=== PATIENT | male | born 1980 | race Caucasian/White ===

== ENCOUNTER 2017-02-08 19:04 | Emergency (ER) | payer BC ==
[2017-02-08] MEDS ORDERED: Ketorolac 60 MG/2 ML SDV IM ONE (19:10)
--- NOTE | 2017-02-08 20:02 | EDM.PDOC ---
ED HPI GENERAL MEDICAL PROBLEM - General Chief Complaint: Back Pain or Injury Stated Complaint: HIP PAIN Time Seen by Provider: 02/08/17 19:35 Source of Information: Reports: Patient History Limitations: Reports: No Limitations - History of Present Illness INITIAL COMMENTS - FREE TEXT/NARRATIVE: History of present illness: [36-year-old male presenting with acute onset left hip pain. Patient has a known problem with his hip he indicated and that it has popped in and out before and is excruciating and he comes in desiring some help with further evaluation.] Review of systems: As per history of present illness and below otherwise all systems reviewed and negative. Past medical history: As per history of present illness and as reviewed below otherwise noncontributory. Surgical history: As per history of present illness and as reviewed below otherwise noncontributory. Social history: No reported history of drug or alcohol abuse. Family history: As per history of present illness and as reviewed below otherwise noncontributory. Physical exam: HEENT: Atraumatic, normocephalic, pupils reactive, negative for conjunctival pallor or scleral icterus, mucous membranes moist, throat clear, neck supple, nontender, trachea midline. Lungs: Clear to auscultation, breath sounds equal bilaterally, chest nontender. Heart: S1S2, regular, negative for clicks, rubs, or JVD. Abdomen: Soft, nondistended, nontender. Negative for masses or hepatosplenomegaly. Negative for costovertebral tenderness. Pelvis: Stable nontender. Genitourinary: Deferred. Rectal: Deferred. Extremities: Atraumatic, negative for cords or calf pain. Neurovascular unremarkable. Neuro: Awake, alert, oriented. Cranial nerves II through XII unremarkable. Cerebellum unremarkable. Motor and sensory unremarkable throughout. Exam nonfocal. Global assessment is benign save the subjective complaint as noted in the history of present illness patient has full range of motion to his left hip of 8 with some guarding and verbalizing that it is painful. Diagnostics: [] Therapeutics: [] Impression: [Left hip pain] Plan: [Referral to ortho] Definitive disposition and diagnosis as appropriate pending reevaluation and review of above. lower back Pain Score (Numeric/FACES): 9 - Related Data Allergies Allergy/AdvReac Type Severity Reaction Status Date / Time Penicillins Allergy Anaphylactic Verified 02/08/17 19:07 Shock Home Meds: Home Meds Aspirin [Halfprin] 81 mg PO ONETIME 11/07/15 [History] Citalopram [Celexa] 40 mg PO ONETIME 11/07/15 [History] Lisinopril 5 mg PO DAILY 11/07/15 [History] Metoprolol Succinate [Toprol XL] 25 mg PO DAILY 11/07/15 [History] Prasugrel HCl [Effient] 10 mg PO DAILY 11/07/15 [History] atorvaSTATin [Lipitor] 40 mg PO ONETIME 11/07/15 [History] Insulin Glargine,Hum.Rec.Anlog [Toujeo Solostar] 22 units SQ DAILY 02/08/17 [ History] sitaGLIPtin Phos/Metformin HCl [Janumet Xr 100-1,000 mg Tablet] 1 tab PO DAILY 02/08/17 [History] Past Medical History HEENT History: Reports: None Cardiovascular History: Reports: High Cholesterol, [place] Gastrointestinal History: Reports: None Genitourinary History: Reports: None Musculoskeletal History: Reports: None Neurological History: Reports: None Psychiatric History: Reports: None Endocrine/Metabolic History: Reports: Diabetes, Type II Hematologic History: Reports: None Immunologic History: Reports: None Oncologic (Cancer) History: Reports: None Dermatologic History: Reports: None - Infectious Disease History Infectious Disease History: Reports: None - Past Surgical History Head Surgeries/Procedures: Reports: None HEENT Surgical History: Reports: Adenoidectomy Cardiovascular Surgical History: Reports: Coronary Artery Stent GI Surgical History: Reports: Appendectomy Social & Family History - Family History Family Medical History: Noncontributory - Tobacco Use Smoking Status *Q: Current Every Day Smoker Years of Tobacco use: 25 Packs/Tins Daily: 1 - Caffeine Use Caffeine Use: Reports: Coffee, Tea - Recreational Drug Use Recreational Drug Use: No ED ROS GENERAL - Review of Systems Review Of Systems: See Below (History of present illness) ED EXAM, GENERAL - Physical Exam Exam: See Below (See history of present illness) Course - Vital Signs Last Recorded V/S: Last Vital Signs Temp 36.8 C 02/08/17 19:08 Pulse 96 02/08/17 19:08 Resp 18 02/08/17 19:08 BP 142/80 H 02/08/17 19:08 Pulse Ox 98 07/13/17 19:08 - Orders/Labs/Meds Orders: Active Orders 24 hr Category Date Time Status Hip Min 2V or 3V Lt [CR] Stat Exams 02/08/17 19:12 Ordered Meds: Medications Discontinued Medications Generic Name Dose Route Start Last Admin Trade Name Scarlet PRN Reason Stop Dose Admin Ketorolac Tromethamine 60 mg 02/08/17 19:10 02/08/17 19:16 Toradol IM 02/08/17 19:11 60 mg ONETIME ONE Administration Departure - Departure Time of Disposition: 20:01 Disposition: Home, Self-Care 01 Condition: Good Clinical Impression: Left hip pain - Discharge Information Forms: ED Department Discharge Additional Instructions: The following information is given to patients seen in the emergency department who are being discharged to home. This information is to outline your options for follow-up care. We provide all patients seen in our emergency department with a follow-up referral. The need for follow-up, as well as the timing and circumstances, are variable depending upon the specifics of your emergency department visit. If you don't have a primary care physician on staff, we will provide you with a referral. We always advise you to contact your personal physician following an emergency department visit to inform them of the circumstance of the visit and for follow-up with them and/or the need for any referrals to a consulting specialist. The emergency department will also refer you to a specialist when appropriate. This referral assures that you have the opportunity for follow-up care with a specialist. All of these measure are taken in an effort to provide you with optimal care, which includes your follow-up. Under all circumstances we always encourage you to contact your private physician who remains a resource for coordinating your care. When calling for follow-up care, please make the office aware that this follow-up is from your recent emergency room visit. If for any reason you are refused follow-up, please contact the [facility] Emergency Department at and asked to speak to the emergency department charge nurse. Take medication as directed Follow-up with proposal rep directed (Primary care as discussed return to ED as needed as discussed [facility] Professional [address], [address] [place] [address] - My Orders Last 24 Hours: My Active Orders 02/08/17 19:12 Hip Min 2V or 3V Lt [CR] Stat - Assessment/Plan Last 24 Hours: My Active Orders 02/08/17 19:12 Hip Min 2V or 3V Lt [CR] Stat
[2017-02-08 23:13] VITALS: BP 135/84
--- NOTE | 2017-02-09 10:45 | CR ---
EXAM DATE: 02/08/17 PATIENT'S AGE: 36 Patient: YAA BRISCOE Facility: [place], [place] Site . Site : 1980 Study: XRay Hip Left [id number]/13/[id number] 7:38:27 PM Ordering Physician: Doctor Love Final Report: HISTORY: Trauma, and the track and twisted. [place] like he dislocated his and relocated. FINDINGS: AP and frogleg views of the left hip demonstrates normal alignment. No fracture or dislocation is seen. A subtle 1.3 centimeter round sclerotic focus in the intertrochanteric femur. This is not as dense as expected for a bone island. IMPRESSION: 1. No acute bony abnormality in the left hip. 2. Findings sclerotic 1.3 centimeter focus within the left intertrochanteric femur. This is nonspecific in appearance. Recommend comparison to old films. If none are available, consider MRI for further evaluation. Dictated by Page Vieira MD @ 02/08/2017 7:49:17 PM Dictated by: Page Vieira MD @ 02/08/2017 19:49:22 (Electronic Signature) Report Signed by Proxy. VANNESSA
== END 2017-02-08 20:21 | disposition home or self-care (01) ==
LOC: MW.ED 19:04
DX: M25.552 Pain in left hip (principal); I25.2 Old myocardial infarction; E78.00 Pure hypercholesterolemia, unspecified; E11.9 Type 2 diabetes mellitus without complications; Z95.5 Presence of coronary angioplasty implant and graft; Z98.890 Other specified postprocedural states; Z79.4 Long term (current) use of insulin; Z79.899 Other long term (current) drug therapy
CPT/HCPCS: 73502; 96372; 99283; J1885

== ENCOUNTER 2020-04-16 16:25 | Emergency (ER) | payer BC ==
[2020-04-16] MEDS ORDERED: Sodium Chloride 0.9% 10 ML Syringe FLUSH PRN (16:46)
[2020-04-16] MEDS ORDERED: Aspirin 81 MG Tab.Chew PO ONE (16:46)
[2020-04-16] MEDS ORDERED: Sodium Chloride 0.9% 2.5 ML Syringe FLUSH PRN (16:46)
--- NOTE | 2020-04-16 16:51 | EDM.PDOC ---
ED HPI GENERAL MEDICAL PROBLEM - General Chief Complaint: Chest Pain Stated Complaint: CHEST PAIN Time Seen by Provider: 04/16/20 16:39 Source of Information: Reports: Patient History Limitations: Reports: No Limitations - History of Present Illness INITIAL COMMENTS - FREE TEXT/NARRATIVE: History of present illness: [Patient is 39-year-old male with a history of previous heart attack and stent when he was 34 who presents after having an episode of chest pain yesterday. He states that he was walking in the long, casually, when he started to feel some burning in his chest that radiated to both shoulders. He states the symptoms lasted for about 15 minutes, he got to his car and once he got his car the symptoms resolved spontaneously. He has not had any episodes of chest pain since. Denies associated shortness of breath. Denies blurry vision, headache, fever, chills, focal neurological deficit. He states that his allergies have been "kicking my ass" and he has had a dry cough associated with the symptoms and so he is not sure if the soreness in his chest is related to that or if it is due to the episode of chest pain he experienced yesterday.] Review of systems: As per history of present illness and below otherwise all systems reviewed and negative. Past medical history: As per history of present illness and as reviewed below otherwise noncontributory. Surgical history: As per history of present illness and as reviewed below otherwise noncontributory. Social history: No reported history of drug or alcohol abuse. Family history: As per history of present illness and as reviewed below otherwise noncontributory. Physical exam: General: Awake, alert, no acute distress, A&O X3. HEENT: Atraumatic, normocephalic, pupils reactive, negative for conjunctival pallor or scleral icterus, mucous membranes moist, throat clear, neck supple, nontender, trachea midline. Lungs: Clear to auscultation, breath sounds equal bilaterally, chest nontender. Heart: RRR, normal S1S2, no JVD. Abdomen: Soft, nondistended, nontender. Negative for masses or hepatosplenomegaly. Negative for costovertebral tenderness. Pelvis: Stable nontender. Genitourinary: Deferred. Rectal: Deferred. Extremities: Atraumatic, no edema, Neurovascular unremarkable. Neuro: Motor and sensory grossly intact throughout. Exam nonfocal. Diagnostics: [] Therapeutics: [] Impression: [] Plan: [] Definitive disposition and diagnosis as appropriate pending reevaluation and review of above. chest Pain Score (Numeric/FACES): 2 - Related Data Allergies Allergy/AdvReac Type Severity Reaction Status Date / Time Penicillins Allergy Anaphylactic Verified 04/16/20 16:35 Shock Home Meds: Home Meds Aspirin [Halfprin] 81 mg PO ONETIME 11/07/15 [History] Citalopram [Celexa] 40 mg PO DAILY 11/07/15 [History] Lisinopril 5 mg PO DAILY 11/07/15 [History] Metoprolol Succinate [Toprol XL] 25 mg PO DAILY 11/07/15 [History] atorvaSTATin [Lipitor] 40 mg PO BEDTIME 11/07/15 [History] Insulin Glargine,Hum.Rec.Anlog [Toujeo Solostar] 34 units SQ DAILY 02/08/17 [History] sitaGLIPtin Phos/Metformin HCl [Janumet Xr 100-1,000 mg Tablet] 1 tab PO DAILY 02/08/17 [History] Past Medical History HEENT History: Reports: None Cardiovascular History: Reports: High Cholesterol, Hypertension, [place] Respiratory History: Reports: None Gastrointestinal History: Reports: None Genitourinary History: Reports: None Musculoskeletal History: Reports: None Neurological History: Reports: None Psychiatric History: Reports: Anxiety Endocrine/Metabolic History: Reports: Diabetes, Type II Hematologic History: Reports: None Immunologic History: Reports: None Oncologic (Cancer) History: Reports: None Dermatologic History: Reports: None - Infectious Disease History Infectious Disease History: Reports: None - Past Surgical History Head Surgeries/Procedures: Reports: None HEENT Surgical History: Reports: Adenoidectomy Cardiovascular Surgical History: Reports: Coronary Artery Stent GI Surgical History: Reports: Appendectomy Endocrine Surgical History: Reports: None Social & Family History - Family History Family Medical History: Noncontributory - Tobacco Use Smoking Status *Q: Current Every Day Smoker Years of Tobacco use: 25 Packs/Tins Daily: 0.5 - Caffeine Use Caffeine Use: Reports: Coffee - Recreational Drug Use Recreational Drug Use: No ED ROS GENERAL - Review of Systems Review Of Systems: Comprehensive ROS is negative, except as noted in HPI. ED EXAM, GENERAL - Physical Exam Exam: See Below (see h and p) EKG INTERPRETATION EKG Date: 04/16/20 Time: 16:30 Rhythm: NSR Rate (Beats/Min): 97 [place]: Normal P-Wave: Present QRS: Normal ST-T: Normal QT: Normal Course - Vital Signs Text/Narrative:: EKG nonischemic, troponin negative, vital signs stable, patient has been chest pain-free throughout his emergency department stay. Heart score of 3 due to risk factors and history. I do not see much utility in getting a serial troponin as the episode was yesterday and if there was any elevation we would have seen it on the initial troponin drawn. Given that his symptoms have completely resolved since yesterday and that his work-up here is reassuring and negative, I believe he is appropriate for outpatient follow-up and management. I told him he needed to establish local cardiology follow-up, set up to get a stress test and echocardiogram in the outpatient setting. Strict return precautions provided for new or worsening symptoms including recurrent chest pain, shortness of breath, syncope, etc. Patient understands this plan and is agreeable with it. Last Recorded V/S: Last Vital Signs Temp 35.8 C L 04/16/20 17:45 Pulse 105 H 04/16/20 17:45 Resp 14 04/16/20 17:45 BP 133/81 04/16/20 17:45 Pulse Ox 95 04/16/20 17:45 - Orders/Labs/Meds Orders: Active Orders 24 hr Category Date Time Status Saline Lock Insert [OM.PC] Stat Oth 04/16/20 16:46 Ordered Labs: Laboratory Tests 04/16/20 04/16/20 04/16/20 Range/Units 16:30 16:35 16:35 WBC 10.62 (4.0-11.0) K/uL RBC 5.56 (4.50-5.90) M/uL Hgb 16.3 (13.0-17.0) g/dL Hct 49.2 (38.0-50.0) % MCV 88.5 (80.0-98.0) fL MCH 29.3 (27.0-32.0) pg MCHC 33.1 (31.0-37.0) g/dL RDW Std Deviation 46.2 (28.0-62.0) fl RDW Coeff of Ziggy 14 (11.0-15.0) % Plt Count 290 (150-400) K/uL MPV 10.10 (7.40-12.00) fL Neut % (Auto) 54.3 (48.0-80.0) % Lymph % (Auto) 36.9 (16.0-40.0) % [place] % (Auto) 6.5 (0.0-15.0) % Eos % (Auto) 1.9 (0.0-7.0) % Baso % (Auto) 0.4 (0.0-1.5) % Neut # (Auto) 5.8 H (1.4-5.7) K/uL Lymph # (Auto) 3.9 H (0.6-2.4) K/uL [place] # (Auto) 0.7 (0.0-0.8) K/uL Eos # (Auto) 0.2 (0.0-0.7) K/uL Baso # (Auto) 0.0 (0.0-0.1) K/uL Nucleated RBC % 0.0 /100WBC Nucleated RBCs # 0 K/uL Sodium 138 (136-148) mmol/L Potassium 4.2 (3.5-5.1) mmol/L Chloride 103 (98-107) mmol/L Carbon Dioxide 24.3 (21.0-32.0) mmol/L BUN 18 (7.0-18.0) mg/dL Creatinine 1.0 (0.8-1.3) mg/dL Est Cr Clr Drug Dosing 98.19 mL/min Estimated GFR (MDRD) > 60.0 ml/min Glucose 207 H (74-106) mg/dL Calcium 9.7 (8.5-10.1) mg/dL Total Bilirubin 0.1 L (0.2-1.0) mg/dL AST 11 L (15-37) IU/L ALT 35 (14-63) IU/L Alkaline Phosphatase 78 (46-116) U/L Troponin I < 0.050 (0.000-0.056) ng/mL B-Natriuretic Peptide 4 (<100) PG/ML Total Protein 7.7 (6.4-8.2) g/dL Albumin 4.1 (3.4-5.0) g/dL Globulin 3.6 (2.6-4.0) g/dL Albumin/Globulin Ratio 1.1 (0.9-1.6) Meds: Medications Discontinued Medications Generic Name Dose Route Start Last Admin Trade Name Scarlet PRN Reason Stop Dose Admin Aspirin 324 mg 04/16/20 16:46 04/16/20 17:03 Aspirin PO 04/16/20 16:47 324 mg ONETIME ONE Administration Sodium Chloride 10 ml 04/16/20 16:46 Saline Flush FLUSH ASDIRECTED PRN Keep Vein Open Sodium Chloride 2.5 ml 04/16/20 16:46 Saline Flush FLUSH ASDIRECTED PRN Keep Vein Open Departure - Departure Time of Disposition: 17:40 Disposition: Home, Self-Care 01 Condition: Good Clinical Impression: Chest pain Instructions: Nonspecific Chest Pain, Adult Referrals: Jeremi Bell MD [Primary Care Provider] - Forms: ED Department Discharge Additional Instructions: [facility] - Cardiology [address] [place] [id number] Call to set up appointment with cardiology clinic. Take all medications as previously prescribed. Return to the ER with any new or worsening symptoms. The following information is given to patients seen in the emergency department who are being discharged to home. This information is to outline your options for follow-up care. We provide all patients seen in our emergency department with a follow-up referral. The need for follow-up, as well as the timing and circumstances, are variable depending upon the specifics of your emergency department visit. If you don't have a primary care physician on staff, we will provide you with a referral. We always advise you to contact your personal physician following an emergency department visit to inform them of the circumstance of the visit and for follow-up with them and/or the need for any referrals to a consulting specialist. The emergency department will also refer you to a specialist when appropriate. This referral assures that you have the opportunity for follow-up care with a specialist. All of these measure are taken in an effort to provide you with optimal care, which includes your follow-up. Under all circumstances we always encourage you to contact your private p hysician who remains a resource for coordinating your care. When calling for follow-up care, please make the office aware that this follow-up is from your recent emergency room visit. If for any reason you are refused follow-up, please contact the [facility] Emergency Department at and asked to speak to the emergency department charge nurse. Sepsis Event Note (ED) - Evaluation Sepsis Screening Result: No Definite Risk - Focused Exam Vital Signs: Vital Signs Temp Pulse Resp BP Pulse Ox 04/16/20 17:45 35.8 C L 105 H 14 133/81 95 04/16/20 17:38 89 12 145/83 H 94 L 04/16/20 16:28 35.8 C L 100 18 145/83 H 96 - My Orders Last 24 Hours: My Active Orders 04/16/20 16:46 Saline Lock Insert [OM.PC] Stat - Assessment/Plan Last 24 Hours: My Active Orders 04/16/20 16:46 Saline Lock Insert [OM.PC] Stat
--- NOTE | 2020-04-16 17:06 | CR ---
Chest: Portable view of the chest was obtained. Comparison: Prior chest x-ray of . Heart size and mediastinum are normal. Lungs are clear with no acute parenchymal change. Bony structures are grossly intact. Impression: 1. Nothing acute is seen on portable chest x-ray. Diagnostic code #1 This report was dictated in MDT
[2020-04-16 17:11] LABS: BLOOD UREA NITROGEN,BUN 18 mg/dL (7.0-18.0); CARBON DIOXIDE,CO2 24.3 mmol/L (21.0-32.0); CHLORIDE,CL 103 mmol/L (98-107); GLUCOSE RANDOM 207 mg/dL (74-106); POTASSIUM,K 4.2 mmol/L (3.5-5.1); SODIUM,NA 138 mmol/L (136-148)
[2020-04-16 17:48] VITALS: BP 133/81; PULSE 105
== END 2020-04-16 17:45 | disposition home or self-care (01) ==
LOC: MW.ED 16:25
DX: R07.9 Chest pain, unspecified (principal); I10 Essential (primary) hypertension; I25.2 Old myocardial infarction; F41.9 Anxiety disorder, unspecified; E11.9 Type 2 diabetes mellitus without complications; F17.210 Nicotine dependence, cigarettes, uncomplicated; Z88.0 Allergy status to penicillin; Z79.899 Other long term (current) drug therapy; Z95.5 Presence of coronary angioplasty implant and graft; Z90.49 Acquired absence of other specified parts of digestive tract
CPT/HCPCS: 36415; 71045; 80053; 83880; 84484; 85025; 93005; 99285; A9270; 99283

== ENCOUNTER 2020-06-20 15:18 | Emergency (ER) | payer BC ==
--- NOTE | 2020-06-20 15:50 | EDM.PDOC ---
<Shannen Chamorro - Last Filed: 06/20/20 15:39> ED HPI GENERAL MEDICAL PROBLEM - General Chief Complaint: General Stated Complaint: POST SURGERY INCISION OPENED Time Seen by Provider: 06/20/20 15:19 Source of Information: Reports: Patient History Limitations: Reports: No Limitations - History of Present Illness INITIAL COMMENTS - FREE TEXT/NARRATIVE: HISTORY AND PHYSICAL: History of present illness: Patient is a 40-year-old male who presents to the ED today with concern of the bottom of his surgical wound opening up from a cardiac bypass that occurred on May 25. Patient states he had the surgery done by a cardiothoracic surgeon in [place] at [facility] and had a follow-up 1 week ago. Patient states that there was a scab covering the bottom part of the incision that fell off this morning. Patient states underlying the incision was an open area of the incision so he came to the ED for evaluation. Patient states that initially when the scab fell off of the area, there was a small amount of brown scab-like drainage but other than this, patient denies any pus, blood, or drainage from the area. Patient denies any other symptoms or concerns. Patient denies fever, chills, chest pain, shortness of breath, or cough. Denies headache, neck stiff ness, change in vision, syncope, or near syncope. Denies nausea, vomiting, abdominal pain, diarrhea, constipation, or dysuria. Has not noted any blood in urine or stool. Patient has been eating and drinking appropriately. Review of systems: As per history of present illness and below otherwise all systems reviewed and negative. Past medical history: As per history of present illness and as reviewed below otherwise noncontributory. Surgical history: As per history of present illness and as reviewed below otherwise noncontributory. Social history: See social history for further information Family history: As per history of present illness and as reviewed below otherwise noncon tributory. Physical exam: General: Patient is alert, oriented, and in no acute distress. Patient sitting comfortably on exam table. HEENT: Atraumatic, normocephalic, pupils equal and reactive bilaterally, negative for conjunctival pallor or scleral icterus, mucous membranes moist, TMs normal bilaterally, throat clear, neck supple, nontender, trachea midline. No drooling or trismus noted. No meningeal signs. No hot potato voice noted. Lungs/Chest: There is a slight wound dehiscence at the inferior aspect of the bottom 2cm of surgical incision approximately 0.5-1cm without drainage, pus, erythema, or sign of infection. This dehiscence is superficial and does not comprise deeper tissues. Other area of incision appears to be healing well without drainage, erythema, warmth, or pain to palpation. Otherwise, clear to auscultation, breath sounds equal bilaterally, chest nontender. Heart: S1S2, regular rate and rhythm without overt murmur Abdomen: Soft, nondistended, nontender. Negative for masses or hepatosplenomegaly. Negative for costovertebral tenderness. Pelvis: Stable nontender. Genitourinary: Deferred. Rectal: Deferred. Skin: Intact, warm, dry. No lesions or rashes noted. Extremities: Atraumatic, negative for cords or calf pain. Neurovascular unremarkable. Neuro: Awake, alert, oriented. Cranial nerves II through XII unremarkable. Cerebellum unremarkable. Motor and sensory unremarkable throughout. Exam nonfocal. Notes: Dr. Owusu directly involved in patient care. There is a slight wound dehiscence at the inferior aspect of the incision approximately 0.5-1cm without drainage or sign of infection. This dehiscence is superficial and does not comprise deeper tissues. Wound care management and close follow up with his PCP/cardiothoracic surgeon discussed. Signs and symptoms that would prompt return to the ED thoroughly discussed with patient. Discussed importance for follow-up with a primary care provider. Voices understanding and is agreeable to plan of care. Denies any further questions or concerns at this time. Diagnostics: None Therapeutics: None Prescription: None Impression: Wound dehiscence, superficial, surgical Plan: 1. Continue to monitor for improving vs worsening healing of incision area as discussed. 2. Follow up with your primary care provider/cardiothoracic surgeon as discussed. 3. Wound management as discussed. Return to the ED as needed and as discussed. Definitive disposition and diagnosis as appropriate pending reevaluation and review of above. chest Pain Score (Numeric/FACES): 1 - Related Data Allergies Allergy/AdvReac Type Severity Reaction Status Date / Time Penicillins Allergy Anaphylactic Verified 06/20/20 15:28 Shock Home Meds: Home Meds Aspirin [Halfprin] 81 mg PO ONETIME 11/07/15 [History] Citalopram [Celexa] 40 mg PO DAILY 11/07/15 [History] Lisinopril 5 mg PO DAILY 11/07/15 [History] Metoprolol Succinate [Toprol XL] 50 mg PO DAILY 11/07/15 [History] atorvaSTATin [Lipitor] 40 mg PO BEDTIME 11/07/15 [History] Insulin Glargine,Hum.Rec.Anlog [Touzurio Solostar] 34 units SQ DAILY 02/08/17 [History] Past Medical History HEENT History: Reports: None, Impaired Vision Cardiovascular History: Reports: High Cholesterol, Hypertension, [place] Other Cardiovascular History: triple bypass Respiratory History: Reports: None Gastrointestinal History: Reports: None Genitourinary History: Reports: None Musculoskeletal History: Reports: None Neurological History: Reports: None Psychiatric History: Reports: Anxiety Endocrine/Metabolic History: Reports: Diabetes, Type II Hematologic History: Reports: None Immunologic History: Reports: None Oncologic (Cancer) History: Reports: None Dermatologic History: Reports: None - Infectious Disease History Infectious Disease History: Reports: None - Past Surgical History Head Surgeries/Procedures: Reports: None HEENT Surgical History: Reports: Adenoidectomy Cardiovascular Surgical History: Reports: Coronary Artery Stent GI Surgical History: Reports: Appendectomy Endocrine Surgical History: Reports: None Social & Family History - Family History Family Medical History: No Pertinent Family History - Caffeine Use Caffeine Use: Reports: Coffee - Recreational Drug Use Recreational Drug Use: No ED ROS GENERAL - Review of Systems Review Of Systems: Comprehensive ROS is negative, except as noted in HPI. ED EXAM, GENERAL - Physical Exam Exam: See Below (see dictation) Departure - Departure Time of Disposition: 15:39 Disposition: Home, Self-Care 01 Clinical Impression: Wound dehiscence, surgical Qualifiers: Encounter type: initial encounter Qualified Code(s): T81.31XA - Disruption of external operation (surgical) wound, not elsewhere classified, initial encounter - Discharge Information Referrals: Jeremi Bell MD [Primary Care Provider] - Forms: ED Department Discharge Additional Instructions: The following information is given to patients seen in the emergency department who are being discharged to home. This information is to outline your options for follow-up care. We provide all patients seen in our emergency department with a follow-up referral. The need for follow-up, as well as the timing and circumstances, are variable depending upon the specifics of your emergency department visit. If you don't have a primary care physician on staff, we will provide you with a referral. We always advise you to contact your personal physician following an emergency department visit to inform them of the circumstance of the visit and for follow-up with them and/or the need for any referrals to a consulting specialist. The emergency department will also refer you to a specialist when appropriate. This referral assures that you have the opportunity for follow-up care with a specialist. All of these measure are taken in an effort to provide you with optimal care, which includes your follow-up. Under all circumstances we always encourage you to contact your private physician who remains a resource for coordinating your care. When calling for follow-up care, please make the office aware that this follow-up is from your recent emergency room visit. If for any reason you are refused follow-up, please contact the [facility] at and asked to speak to the emergency department charge nurse. [facility] [address] [place] [address] [place] [address] 1. Continue to monitor for improving vs worsening healing of incision area as discussed. 2. Follow up with your primary care provider/cardiothoracic surgeon as discussed. 3. Wound management as discussed. Return to the ED as needed and as discussed. Sepsis Event Note (ED) - Evaluation Sepsis Screening Result: No Definite Risk <Peter Owusu - Last Filed: 06/20/20 15:56> Course - Vital Signs Last Recorded V/S: Last Vital Signs Temp 97.8 F 06/20/20 15:30 Pulse 97 06/20/20 15:30 Resp 18 06/20/20 15:30 BP 110/73 06/20/20 15:30 Pulse Ox 96 06/20/20 15:30 - Re-Assessments/Exams Free Text/Narrative Re-Assessment/Exam: 06/20/20 15:55 And exam is patient with the PA. Patient has a dehiscence of his surgical wound at this time wound does not require surgical repair there is already some scabbing that is present. Will instruct the patient to keep wound covered and clean and to return if any signs of infection. Sepsis Event Note (ED) - Focused Exam Vital Signs: Vital Signs Temp Pulse Resp BP Pulse Ox 06/20/20 15:30 97.8 F 97 18 110/73 96
[2020-06-20 16:03] VITALS: BP 108/65; PULSE 91
== END 2020-06-20 16:04 | disposition home or self-care (01) ==
LOC: MW.ED 15:18
DX: T81.31XA Disruption of external operation (surgical) wound, not elsewhere classified, initial encounter (principal); I10 Essential (primary) hypertension; E78.00 Pure hypercholesterolemia, unspecified; I25.2 Old myocardial infarction; F41.9 Anxiety disorder, unspecified; E11.9 Type 2 diabetes mellitus without complications; Z88.0 Allergy status to penicillin; Z79.82 Long term (current) use of aspirin; Z79.899 Other long term (current) drug therapy; Z79.4 Long term (current) use of insulin
CPT/HCPCS: 99282

== ENCOUNTER 2022-10-21 15:42 | Emergency (ER) | payer BC ==
[2022-10-21] MEDS ORDERED: Lidocaine 1% with EPINEPHrine 1:100,000 10 ML MDV INJECT ONE (16:26)
[2022-10-21] MEDS ORDERED: Lidocaine 1% with EPINEPHrine 1:100,000 20 ML MDV ONE (16:35)
[2022-10-21] MEDS ORDERED: Lidocaine 1% with EPINEPHrine 1:100,000 20 ML MDV INJECT ONE (16:39)
[2022-10-21 17:08] VITALS: BP 128/91; PULSE 84
== END 2022-10-21 17:07 | disposition home or self-care (01) ==
LOC: MW.ED 15:42
DX: S51.812A Laceration without foreign body of left forearm, initial encounter (principal); E78.00 Pure hypercholesterolemia, unspecified; I10 Essential (primary) hypertension; E11.9 Type 2 diabetes mellitus without complications; I25.2 Old myocardial infarction; Z88.0 Allergy status to penicillin; Z79.82 Long term (current) use of aspirin; Z79.899 Other long term (current) drug therapy; Z79.4 Long term (current) use of insulin; W27.0XXA Contact with workbench tool, initial encounter
CPT/HCPCS: 12002; 99282; J3490

== ENCOUNTER 2024-10-29 16:08 | Emergency (ER) | payer BC ==
[2024-10-29 17:07] VITALS: BP 144/90
[2024-10-29] MEDS: Levofloxacin 750 MG Tab PO STA (18:35)
[2024-10-29] MEDS: Ketorolac 30 MG/ML SDV IM ONE (18:36)
[2024-10-29] MEDS: Orphenadrine 60 MG/2 ML Inj IM ONE (18:41)
[2024-10-29] MEDS: Lidocaine 4% Patch TOP STA (18:49)
[2024-10-29 19:14] VITALS: PULSE 87
== END 2024-10-29 19:14 | disposition home or self-care (01) ==
LOC: MW.ED 16:08
DX: M54.40 Lumbago with sciatica, unspecified side (principal); J18.9 Pneumonia, unspecified organism; I10 Essential (primary) hypertension; E78.00 Pure hypercholesterolemia, unspecified; I25.2 Old myocardial infarction; E11.9 Type 2 diabetes mellitus without complications; Z75.8 Other problems related to medical facilities and other health care; Z88.0 Allergy status to penicillin; Z79.82 Long term (current) use of aspirin; Z79.4 Long term (current) use of insulin; Z79.85 Long-term (current) use of injectable non-insulin antidiabetic drugs; Z95.5 Presence of coronary angioplasty implant and graft
CPT/HCPCS: 96372; 99283; A9270; J1100; J1885; J2360